=== PATIENT | female | born 1975 | race Caucasian/White ===

== ENCOUNTER 2017-03-28 19:28 | Emergency (ER) | payer MEDICAID ==
[2017-03-28] MEDS: ACETAMINOPHEN 325 MG TAB PO (23:57)
[2017-03-28] MEDS: IBUPROFEN 600 MG TAB PO (23:57)
[2017-03-29 00:01] LABS: ADD UMIC YES; UR AMORPHOUS CRYSTAL FEW /HPF (NONE SEEN); UR ASCORBIC ACID NEGATIVE (NEGATIVE); UR BACTERIA MANY /HPF (NONE SEEN); UR BILIRUBIN (Dip) NEGATIVE (NEGATIVE); UR BLOOD (Dip) 2+ mg/dL (NEGATIVE); UR CLARITY CLOUDY (CLEAR); UR COLOR YELLOW (YELLOW); UR GLUCOSE (Dip) NEGATIVE (NEGATIVE); UR KETONES (Dip) NEGATIVE (NEGATIVE); UR LEUKOCYTE ESTERASE (Dip) 1+ Leu/ul (NEGATIVE); UR MUCUS FEW /HPF (NONE SEEN); UR NITRITE (Dip) POSITIVE (NEGATIVE); UR RBC 4 /HPF (0-5); UR SPECIFIC GRAVITY (Dip) 1.013 (1.003-1.030); UR SQUAMOUS EPITHELIAL CELL MODERATE /HPF (FEW); UR TOTAL PROTEIN (Dip) 1+ mg/dl (NEGATIVE); UR UROBILINOGEN (Dip) 1+ mg/dL (NEGATIVE); UR WBC 26 /HPF (0-5)
== END 2017-03-29 01:05 | disposition home or self-care (01) ==
LOC: FTE 19:28
DX: N30.01 Acute cystitis with hematuria (principal)
CPT/HCPCS: 81001; 87400; 99283

== ENCOUNTER 2017-07-09 05:51 | Emergency (ER) | payer MEDICAID ==
[2017-07-09 06:52] LABS: URINE PH (Dip) POC 5.5 (5.0-8.5)
[2017-07-09 06:52] LABS: URINE BLOOD (Dip) POC Trace-lysed (NEGATIVE); URINE GLUCOSE (Dip) POC Negative (NEGATIVE); URINE KETONES (Dip) POC Negative (NEGATIVE); URINE LEUKOCYTE EST (Dip) POC Negative (NEGATIVE); URINE NITRITE (Dip) POC Negative (NEGATIVE); URINE TOTAL PROTEIN POC Negative (NEGATIVE)
[2017-07-09] MEDS: HYDROCODONE/APAP (5/325) TAB PO (06:53)
== END 2017-07-09 07:21 | disposition home or self-care (01) ==
LOC: FTE 05:51
DX: M54.5 Low back pain (principal)
CPT/HCPCS: 81003; 81025; 99283

== ENCOUNTER 2017-07-31 08:29 | Emergency (ER) | payer MEDICAID ==
[2017-07-31 09:23] LABS: ADD MAN DIFF? NO
[2017-07-31] MEDS: CEFTRIAXONE 1 GM/50 ML (PMX) 50 ML IVPB (09:23)
[2017-07-31] MEDS: ONDANSETRON 4 MG INJ IV (09:23)
[2017-07-31] MEDS: ACETAMINOPHEN 500 MG TAB PO (09:23)
[2017-07-31] MEDS: SOD CHLORIDE 0.9% 1,000 ML IV (09:24)
[2017-07-31 09:25] LABS: WHITE BLOOD COUNT 10.3 10^3/ul (4.8-10.8)
[2017-07-31 09:25] LABS: BASOPHILS % 0.3 % (0.0-2.0); EOSINOPHILS % 0.2 % (0.0-7.0); HEMATOCRIT 33.7 % (37.0-47.0); HEMOGLOBIN 11.3 g/dl (12.0-16.0); LYMPHOCYTES # 1.2 10^3/ul (0.8-2.9); LYMPHOCYTES % 11.6 % (15.0-51.0); MEAN CORPUSCULAR HEMOGLOBIN 27.4 pg (29.0-33.0); MEAN CORPUSCULAR HGB CONC 33.5 g/dl (32.0-37.0); MEAN CORPUSCULAR VOLUME 81.6 fl (82.0-101.0); MEAN PLATELET VOLUME 12.5 fl (7.4-10.4); MONOCYTE # 0.7 10^3/ul (0.3-0.9); MONOCYTES % 6.5 % (0.0-11.0); NEUTROPHIL # 8.4 10^3/ul (1.6-7.5); NEUTROPHILS % 80.9 % (39.0-77.0); PLATELET COUNT 127 10^3/UL (140-415); RED BLOOD COUNT 4.13 10^6/ul (4.20-5.40); RED CELL DISTRIBUTION WIDTH 12.8 % (11.5-14.5)
[2017-07-31] MEDS: KETOROLAC 30 MG INJ IV (09:38)
[2017-07-31 09:43] LABS: LACTIC ACID 1.9 mmol/L (0.5-2.0)
[2017-07-31 09:55] LABS: ALANINE AMINOTRANSFERASE 29 IU/L (13-69); ALBUMIN 3.9 g/dl (3.3-4.9); ALBUMIN/GLOBULIN RATIO 1.11; ALKALINE PHOSPHATASE 62 IU/L (42-121); ANION GAP 13 (8-16); ASPARTATE AMINO TRANSFERASE 29 IU/L (15-46); BILIRUBIN,INDIRECT 0.8 mg/dl (0-1.1); BILIRUBIN,TOTAL 0.8 mg/dl (0.2-1.3); BLOOD UREA NITROGEN 13 mg/dl (7-20); CALCIUM 9.2 mg/dl (8.4-10.2); CARBON DIOXIDE 28 mmol/L (21-31); CHLORIDE 103 mmol/L (97-110); CREATININE 0.66 mg/dl (0.44-1.00); GLUCOSE 163 mg/dl (70-220); LIPASE 49 U/L (23-300); POTASSIUM 4.1 mmol/L (3.5-5.1); SODIUM 140 mmol/L (135-144); TOTAL PROTEIN 7.4 g/dl (6.1-8.1)
[2017-07-31 11:40] LABS: URINE BLOOD (Dip) POC 2+ (NEGATIVE); URINE GLUCOSE (Dip) POC Negative (NEGATIVE); URINE KETONES (Dip) POC Negative (NEGATIVE); URINE LEUKOCYTE EST (Dip) POC Negative (NEGATIVE); URINE NITRITE (Dip) POC Negative (NEGATIVE); URINE TOTAL PROTEIN POC 2+ (NEGATIVE)
== END 2017-07-31 12:27 | disposition home or self-care (01) ==
LOC: FTE 08:29
DX: R50.9 Fever, unspecified (principal)
CPT/HCPCS: 36415; 80053; 81003; 81025; 83605; 83690; 85025; 87040; 96374; 96375; 99284-25

== ENCOUNTER 2017-08-25 08:33 | Emergency (ER) | payer MEDICAID ==
[2017-08-25] MEDS: KETOROLAC 60 MG INJ IM (10:11)
== END 2017-08-25 10:53 | disposition home or self-care (01) ==
LOC: FTE 08:33
DX: S20.211A Contusion of right front wall of thorax, initial encounter (principal); S40.011A Contusion of right shoulder, initial encounter; S40.021A Contusion of right upper arm, initial encounter; M62.838 Other muscle spasm; Y04.2XXA Assault by strike against or bumped into by another person, initial encounter
CPT/HCPCS: 71046; 73030-RT; 73060-RT; 81025; 96372; 99284-25

== ENCOUNTER 2018-06-12 10:58 | Emergency (ER) | payer SELFPAY, MEDICAID ==
[2018-06-12] MEDS: IBUPROFEN 600 MG TAB PO (12:19)
== END 2018-06-12 14:04 | disposition home or self-care (01) ==
LOC: FTE 10:58
DX: S89.91XA Unspecified injury of right lower leg, initial encounter (principal); W01.0XXA Fall on same level from slipping, tripping and stumbling without subsequent striking against object, initial encounter; Y92.9 Unspecified place or not applicable
CPT/HCPCS: 29505; 73562; 99283-25

== ENCOUNTER 2018-09-10 16:41 | Emergency (ER) | payer MEDICAID ==
[2018-09-10] MEDS: SOD CHLORIDE 0.9% 500 ML IV (19:34)
[2018-09-10] MEDS: KETOROLAC 30 MG INJ IV (19:35)
[2018-09-10] MEDS: METOCLOPRAMIDE 10 MG INJ IV (19:35)
== END 2018-09-10 20:28 | disposition home or self-care (01) ==
LOC: FTE 20:28
DX: R51 Headache (principal); R11.2 Nausea with vomiting, unspecified
CPT/HCPCS: 70450; 81025; 82962; 96361; 96374; 96375; 99285-25